=== PATIENT | female | born 1990 | race African-American/Black ===

== ENCOUNTER → 2020-05-07 | Outpatient (CLI) | payer BC ==
[~2020-05-07] MED LIST: ALBUTEROL2.5 MG/0.5 INH; APAP500 PO; PREDNISONE 20 M20 MG PO; PROAIR HFA8.5 GM INH; PROMETHAZINE/C118 ML PO; PROTONIX40 M1 PO
== END ==
LOC: ULTRA 09:27
PROVIDERS: ATTEND Family Medicine
DX: N83.202 Unspecified ovarian cyst, left side (principal); N83.201 Unspecified ovarian cyst, right side